=== PATIENT | female | born 1960 | race Caucasian/White ===

== ENCOUNTER 2019-04-09 12:22 | Day surgery (SDC) | payer BC, SELFPAY ==
[2019-04-09] VITALS (8 sets, daily range): BP systolic 127–164; BP diastolic 52–82; PULSE 68–78; RESP 10–17; TEMP 36–36.4; O2SAT 95–100; BMI 32.9
[2019-04-09] MEDS: SODIUM CHLORIDE 0.9% 1,000 ML 200 ML IV (13:44)
--- NOTE | 2019-04-09 14:12 | PM.HP.1 ---
History of Present Illness Chief complaint: [id number] COLONOSCOPY W/POSS BX; DX K21.50 Patient History Medical History Arthritis (Acute) Ulcerative colitis (Acute) Social History household members: spouse Family & Social History Social History: household members spouse Meds Home Medications Medication Instructions Recorded Confirmed Type Sheila Allergy 60 mg PO QAM PRN 03/27/18 04/09/19 History Ativan 0.5 - 1 mg PO DAILY PRN 03/27/18 04/09/19 History Basaglar KwikPen U-100 Insulin 30 - 40 units SUB-Q DAILY 03/27/18 04/09/19 History [place] 5 - 325 mg PO Q4H PRN 03/27/18 04/09/19 History duloxetine [Cymbalta] 30 mg PO DAILY 03/27/18 04/09/19 History liraglutide 1.8 mg SUB-Q QAM 03/27/18 04/09/19 History losartan 25 mg PO DAILY 03/27/18 04/09/19 History nebivolol [Bystolic] 20 mg PO DAILY 03/27/18 04/09/19 History budesonide 9 mg PO DAILY 04/09/19 04/09/19 History mesalamine 800 mg PO TID 04/09/19 04/09/19 History Allergies Allergy/AdvReac Type Severity Reaction Status Date / Time No Known Drug Allergies Allergy Verified 04/09/19 14:00 Review of Systems Review of Systems All systems reviewed & are unremarkable except as noted in HPI and below Exam Vital Signs (past 8 hours): - 04/09/19 13:46 Temperature 96.8 F L Pulse Rate 68 Respiratory Rate 14 Blood Pressure 164/81 H Pulse Oximetry 97 Oxygen Delivery Method Room Air Narrative Exam Narrative: Awake alert oriented x3, pupils reactive, lungs clear, heart regular rate rhythm, abdomen nondistended, no lower extremity edema Assessment & Plan Assessment & Plan narrative: Ulcerative colitis, colonoscopy
[2019-04-09] MEDS: MIDAZOLAM 5 MG/5 ML VIAL IV (15:02)
[2019-04-09] MEDS: fentaNYL 250 MCG/5 ML INJ IV (15:03)
--- NOTE | 2019-04-09 15:08 | PM.OP.ENDO ---
Operative Date/Time/Diagnoses Date of procedure: 04/09/19 Procedure & Clinicians Study performed: Colonoscopy Moderate conscious sedation was administered by the endoscopy nurse and supervised by the endoscopist. The following parameters were monitored: Oxygen saturation, heart rate, blood pressure, and response to care. Sedation: 5 mg midazolam, 200 micro g fentanyl Indications: Diarrhea, history of ulcerative proctosigmoiditis Procedure Notes Procedure in detail: Prior to the procedure, history and physical was performed, and patient medications and allergies were reviewed. Preprocedure nursing history and assessment was reviewed. Patient identification and proposed procedure were verified by the physician and nurse in the procedure room. The physical status of the patient was reassessed after the procedure. After informed consent was obtained including risks, benefits, and alternatives, the scope was passed under direct vision. Throughout the procedure, the patient's blood pressure, pulse, and oxygen saturations were monitored continuously. The colonoscope was introduced through the anus and advanced to the TI and cecum as identified by the appendiceal orifice and ileocecal valve. The patient tolerated the procedure fairly: Patient complained of pain throughout the procedure and we were unable to escalate doses of sedatives due to her respiratory status. Bowel prep was deemed inadequate to detect polyps greater than 5 mm. Digital rectal examination and perianal examination are unremarkable. Retroflexion in the rectum revealed grade 1 internal hemorrhoids. There was a large amount of liquid stool throughout the entire colon. This was lavaged with incomplete clearance. There is no evidence of severe inflammation throughout the entire colon. Biopsies were not taken due to the presence of stool throughout the colon. The terminal ileum was normal appearing. Impression: Normal appearing terminal ileum Stool throughout the entire colon Inadequate sedation No evidence of severe colitis. Very mild colitis or microscopic colitis cannot be ruled out without histologic testing. Sedation minutes: 15 Complications: none Plan for aftercare: Consider repeating colonoscopy with monitored anesthesia care and extended bowel prep if lower GI symptoms continue Follow-up in GI clinic at next available appointment Resume home medications Resume previous diet Discharge home with escort
== END 2019-04-09 16:20 | disposition home or self-care (01) ==
PROVIDERS: PCP Family Medicine; Visit Provider Internal Medicine
PROC: 0DJD8ZZ Inspection of Lower Intestinal Tract, Via Natural or Artificial Opening Endoscopic (ICD-10-PCS; CPT 45378; principal; 2019-04-09 14:30)
DX: R19.7 Diarrhea, unspecified (principal); Z87.19 Personal history of other diseases of the digestive system; K64.0 First degree hemorrhoids
CPT/HCPCS: 45378; J2250; J3010

== ENCOUNTER → 2020-07-11 10:09 | Outpatient (CLI) | payer BC, SELFPAY ==
[2020-07-13 01:41] LABS: COVID19 Sendout Not Detected (Not Detected)
== END ==
PROVIDERS: PCP Family Medicine; Visit Provider Physician Assistant
DX: Z11.59 Encounter for screening for other viral diseases (principal)
CPT/HCPCS: 87635

== ENCOUNTER 2020-07-14 14:21 | Day surgery (SDC) | payer BC, SELFPAY ==
--- NOTE | 2020-07-14 | PATH_ITS ---
[facility] Accession Number: [id number] . 01 Material submitted: . PART A: colon - RANDOM COLON BIOPSIES PART B: rectum - RECTAL BIOPSY PROCTITIS . 01 Clinical history: . COLONOSCOPY . 02 Diagnosis: A. Random Colon, Biopsies: Colonic mucosa with no significant diagnostic abnormality. Negative for active inflammation, granulomas, dysplasia, and malignancy. . B. Rectum, Biopsy: Colonic mucosa with no significant diagnostic abnormality. Negative for active inflammation, granulomas, dysplasia, and malignancy. MRV 07/16/2020 1214 Local . 02 Electronically signed: . Santo Johnson MD, PhD, Pathologist NPI- [id number] . 01 Gross description: . A. Received in formalin, labeled random colon biopsies, and consists of multiple hernandez-pink fragments of soft tissue measuring 1.2 x 1.0 x 0.2 cm in aggregate. The specimen is entirely submitted in cassette A1. B. Received in formalin, labeled rectal biopsy proctitis, and consists of six hernandez-pink fragments of soft tissue measuring 1.0 x 0.6 x 0.2 cm in aggregate. The specimen is entirely submitted in cassette B1. ([id number]) /MRV 07/15/2020 1042 Local . 02 Pathologist provided ICD-10: R19.7 . 02 CPT . 760165, 077844 Performed at: 01 [facility] [address] [place] [address], [place], [place] [id number] MD Ryland Chung MD Phone: [phone] Performed at: 02 [facility] [address] [place], [place] [id number] MD Temi Be MD Phone: [phone]
[2020-07-14 14:53] VITALS: BP 153/85; PULSE 86; RESP 16; TEMP 37.2; O2SAT 97; BMI 32.5
[2020-07-14] MEDS: SODIUM CHLORIDE 0.9% 1,000 ML 70 ML IV (15:03)
--- NOTE | 2020-07-14 15:53 | P.HP_ITS ---
History of Present Illness History of Present Illness Date Patient Seen: 07/14/20 Time Patient Seen: 15:53 Chief complaint: COLONOSCOPY Narrative: Patient shakeel 59 year old female who presented for colonosocpy. History of proctitis. Recent C diff treated with vancomycin. History of difficulty with concious sedation. Patient History Medical History Arthritis (Acute) Ulcerative colitis (Acute) Family & Social History Social History: household members spouse Tobacco & Substance use: Smoking Status Former smoker alcohol intake frequency holiday/special occasion Substance Use Type does not use Meds Home Medications and Allergies Home Medications Medication Instructions Recorded Confirmed Type Ativan 0.5 - 1 mg PO DAILY PRN 03/27/18 07/14/20 History Basaglar KwikPen U-100 Insulin 30 - 40 units SUB-Q DAILY 03/27/18 07/14/20 History Bystolic 10 mg PO DAILY 03/27/18 07/14/20 History [place] 5 - 325 mg PO Q4H PRN 03/27/18 07/14/20 History duloxetine [Cymbalta] 30 mg PO DAILY 03/27/18 07/14/20 History losartan 25 mg PO DAILY 03/27/18 07/14/20 History atorvastatin 20 mg PO DAILY 07/14/20 07/14/20 History cetirizine 10 mg PO DAILY 07/14/20 07/14/20 History liraglutide [Victoza 3-Felipe] 1.8 mg SUBCUT 07/14/20 History Allergies Allergy/AdvReac Type Severity Reaction Status Date / Time No Known Drug Allergies Allergy Verified 07/11/20 10:50 Review of Systems Review of Systems ROS: Yes All systems reviewed with the patient and are negative except as otherwise documented Exam Vital Signs (past 8 hours): - 07/14/20 14:53 Temperature 98.9 F Pulse Rate 86 Respiratory Rate 16 Blood Pressure 153/85 H Pulse Oximetry 97 Oxygen Delivery Method Room Air Const General: cooperative, healthy appearing, comfortable, well developed and well groomed Nutritional Appearance: average body habitus HENMT Head: normocephalic and atraumatic Resp Effort & Inspection: normal respiratory effort, able to speak in complete sentences and abnormal respiratory pattern Auscultation: clear to auscultation bilaterally Cardio Rate: regular rate Rhythm: regular rhythm Heart Sounds: S1 normal and S2 normal Extrem Right lower extremity: no edema Left lower extremity: no edema Assessment & Plan Assessment & Plan narrative: 1. Diarrhea Colonoscopy today, further recommendations to follow
--- NOTE | 2020-07-14 16:02 | PM.OP.ENDO ---
Operative Date/Time/Diagnoses Date of procedure: 07/14/20 Time of procedure: 16:03 Procedure Notes Procedure in detail: Surgeon: Lay Schreiber DO Procedure: Colonoscopy with biopsy Preoperative diagnosis: 1. Diarrhea 2. Hematochezia 3. Right lower quadrant abdominal pain 4. History of C diff colitis Postoperative diagnosis: 1. Mild proctitis -biopsied 2. Normal-appearing colon mucosa in the sigmoid, descending, transverse, and ascending colon biopsied 3. Normal appearing terminal ileum 4. Sigmoid diverticulosis 5. Mild grade 1 internal hemorrhoids Medications: Monitored anesthesia care Preanesthesia Assessment An H and P was performed/updated and the Px?s ASA class is 3. The procedure was discussed in detail with the patient. The potential risks and complications including infection, bleeding, missed lesions, perforation, need for surgery in case of perforation, prolonged hospital stay, and were explained. A brief question and answer period was allotted and once all questions were answered, informed consent was obtained. The patient was brought back to the procedure room and placed on standard monitoring. The patient?s vital signs were monitored continuously throughout the entire procedure. Prior to starting, a timeout was performed to confirm the patient?s identity, allergies, medications, and procedure. Procedure in detail The patient was placed in left lateral decubitus position and once adequate sedation was obtained a ANDRE was performed. The digital rectal examination did not reveal any palpable lesions. The tip of the colonoscope was placed in the anal canal and advanced without difficulty all the way to the cecum which was identified by the appendiceal orifice and the ileocecal valve. Careful examination of all larry of the colon was performed with irrigation of any residual stool. Colonoscopy findings: - Mild proctitis, biopsied - Normal-appearing colon mucosa in the sigmoid, descending, transverse and ascending colon -biopsied - Normal-appearing terminal ileum - Sigmoid diverticulosis - Mild grade 1 internal hemorrhoids noted on retroflexion - Otherwise unremarkable colonoscopy The patient tolerated the procedure well and will be brought back to the recovery area to be discharged once criteria are met. The prep was judged to be good/excellent and adequate to identify polyps less than 5 mm. The withdrawal time was 10min. The total physician intraservice time was 20min. Complications There were no complications and estimated blood loss was minimal. Recommendations: Resume previous diet Continue outPx medications Follow up pathology results Repeat colonoscopy will be determined after pathology results are reviewed Office follow up to be scheduled An emergency contact number was given to the patient for any complications related to the procedure
[2020-07-14 16:27] VITALS: BP 127/72; PULSE 83; RESP 17; TEMP 35.9; O2SAT 100
[2020-07-14 16:31] VITALS: BP 134/76; PULSE 83; RESP 16; O2SAT 100
[2020-07-14 16:37] VITALS: BP 146/73; PULSE 82; RESP 20; O2SAT 100
[2020-07-14 16:45] VITALS: BP 133/80; PULSE 81; RESP 16; TEMP 36.7; O2SAT 96
== END 2020-07-14 16:57 | disposition home or self-care (01) ==
PROVIDERS: PCP Family Medicine; Referring Provider Family Medicine; Visit Provider Student in an Organized Health Care Education/Training Program
PROC: 0DJD8ZZ Inspection of Lower Intestinal Tract, Via Natural or Artificial Opening Endoscopic (ICD-10-PCS; CPT 45378; principal; 2020-07-14 16:00)
DX: K57.30 Diverticulosis of large intestine without perforation or abscess without bleeding (principal); K64.0 First degree hemorrhoids; K62.89 Other specified diseases of anus and rectum
CPT/HCPCS: 45380; J2704

== ENCOUNTER → 2020-11-15 14:57 | Outpatient (CLI) | payer BC, SELFPAY ==
[2020-11-15 15:49] LABS: COVID19 -Nasal RAPID Negative (Negative)
== END ==
PROVIDERS: PCP Family Medicine; Visit Provider Physician Assistant
DX: Z20.822 Contact with and (suspected) exposure to COVID-19 (principal)
CPT/HCPCS: 87635

== ENCOUNTER → 2022-03-31 14:24 | Outpatient (CLI) | payer BC, SELFPAY ==
[2022-03-31 16:26] LABS: COVID19 -Nasal RAPID Negative (Negative)
== END ==
PROVIDERS: PCP Family Medicine; Visit Provider Surgery
DX: Z20.822 Contact with and (suspected) exposure to COVID-19 (principal); Z01.812 Encounter for preprocedural laboratory examination
CPT/HCPCS: 87635; C9803

== ENCOUNTER 2022-04-03 11:53 | Day surgery (SDC) | payer BC, SELFPAY ==
--- NOTE | 2022-04-03 | PATH_ITS ---
[facility] Accession Number: [id number] . 01 Material submitted: . PART A: colon - RIGHT COLON PART B: colon - LEFT COLON PART C: rectum - RECTAL . 01 Diagnosis: A-B. Right, Left Colon, Biopsies: Focal active colitis. Negative for granulomas, dysplasia, or malignancy. . C. Rectum, Biopsy: Mild active colitis with focal crypt architectural distortion; please see comment. Negative for granulomas, dysplasia, or malignancy. MRV 04/06/2022 1350 Local . 01 Comment: The overall histologic findings raise a differential diagnosis, including infection, drug/toxin-induced injury, and, in the appropriate clinical setting, idiopathic inflammatory bowel disease. . 01 Electronically signed: . Santo Johnson MD, PhD, Pathologist NPI- [id number] . 01 Gross description: . Part A: RIGHT COLON: Received in formalin is 1 fragment(s) of hernandez, soft tissue measuring 0.1 x 0.1 x 0.1 cm submitted entirely in 1 cassette(s) Part B: LEFT COLON: Received in formalin are 2 fragment(s) of hernandez, soft tissue measuring 0.1 x 0.1 x 0.1 cm to 0.3 x 0.3 x 0.2 cm submitted entirely in 1 cassette(s) Part C: RECTAL: Received in formalin are 3 fragment(s) of hernandez, soft tissue measuring 0.1 x 0.1 x 0.1 cm to 0.3 x 0.3 x 0.2 cm submitted entirely in 1 cassette(s) /MARIN 04/04/2022 1933 Local . 01 Pathologist provided ICD-10: K92.1, R19.7, K52.9 . 01 CPT . 166208, 356311, 422849 Specimen Comment: A courtesy copy of this report has been sent to [phone] Performed at: 01 [facility] [address] [place] [address], [place], [place] [id number] MD Ryland Chung MD Phone: [phone]
[2022-04-03 12:50] VITALS: BP 127/75; PULSE 63; RESP 16; TEMP 36.7; O2SAT 97
[2022-04-03 12:51] VITALS: BMI 33.0
--- NOTE | 2022-04-03 14:16 | P.HP_ITS ---
History of Present Illness History of Present Illness Date Patient Seen: 04/03/22 Time Patient Seen: 14:16 Chief complaint: DX COLONOSCOPY Narrative: I reviewed the recent office note by . No significant changes. Patient has persistent intermittent loose stool bleeding. Repeat colonoscopy is requested. Patient History Medical History Arthritis Diabetes Diverticulosis Endometriosis History of COVID-19 (~02/2022) HTN (hypertension) PTSD (post-traumatic stress disorder) Recurrent colitis due to Clostridioides difficile Ulcerative colitis Surgical History History of colonoscopy History of hysterectomy Family & Social History Social History: household members spouse Tobacco & Substance use: Smoking Status Former smoker alcohol intake current alcohol intake frequency holiday/special occasion Substance Use Type does not use Meds Home Medications and Allergies Home Medications Medication Instructions Recorded Confirmed Type Ativan 0.5 - 1 mg PO DAILY PRN 03/27/18 04/03/22 History Basaglkimmie [place] U-100 Insulin 30 - 40 units SUB-Q DAILY 03/27/18 04/03/22 History [place] 5 - 325 mg PO Q4H PRN 03/27/18 04/03/22 History duloxetine 30 mg capsule,delayed 30 mg PO DAILY 03/27/18 04/03/22 History release (Cymbalta) losartan 25 mg tablet 25 mg PO DAILY 03/27/18 04/03/22 History atorvastatin 20 mg tablet 20 mg PO DAILY 07/14/20 04/03/22 History cetirizine 10 mg tablet 10 mg PO DAILY 07/14/20 04/03/22 History liraglutide 0.6 mg/0.1 mL (18 mg/3 1.8 mg SUBCUT DAILY 07/14/20 04/03/22 History mL) subcutaneous pen injector (Victoza 3-Felipe) amlodipine 10 mg tablet 10 mg PO DAILY 04/03/22 04/03/22 History empagliflozin 25 mg tablet 25 mg PO DAILY 04/03/22 04/03/22 History (Jardiance) mesalamine 1,000 mg rectal 1 g SC BEDTIME 04/03/22 04/03/22 History suppository (Canasa) nebivolol 20 mg tablet 20 mg PO DAILY 04/03/22 04/03/22 History Allergies Allergy/AdvReac Type Severity Reaction Status Date / Time latex Allergy Mild Burning Verified 04/03/22 12:42 (from a catheter) codeine AdvReac Mild Nausea Verified 04/03/22 12:42 felodipine [From Plendil] AdvReac Mild Migraine Verified 04/03/22 12:42 Review of Systems Review of Systems ROS: Yes All systems reviewed with the patient and are negative except as otherwise documented Exam Vital Signs (past 8 hours): - 04/03/22 12:50 Temperature 98.1 F Pulse Rate 63 Respiratory Rate 16 Blood Pressure 127/75 Pulse Oximetry 97 Oxygen Delivery Method Room Air Const General: cooperative and comfortable Orientation: alert HENMT Head: normocephalic Ears: external ears normal Nose: external nose normal Face and sinus: normal facial exam Mouth: oral mucosae normal Eyes General: appearance normal, both eyes and all related structures Neck Neck: normal visual inspection Chest Chest: normal inspection of the chest Resp Effort & Inspection: normal respiratory effort Cardio Rate: regular rate GI Inspection: normal to inspection Skin General: no rashes or lesions noted and No jaundice Neuro General: patient alert and moves all extremities Cognition: normal cognition Speech: speech normal Extrem General: no pedal edema Psych Appearance: grossly normal Assessment & Plan Assessment & Plan narrative: 61-year-old female with a history of C diff colitis and indeterminate colitis experiencing ongoing symptoms despite mesalamine suppositories. Colonoscopy is pursued today. Time Spent With Patient Critical Care time: I spent a total of [] minutes of critical care time on this patient's care today; this time is exclusive of procedural time.
--- NOTE | 2022-04-03 14:19 | PM.PREOP ---
Pre-operative Note COVID-19 COVID-19 status: Negative Result date/Date tested (Pos, Neg/Pending): 03/31/22 Criteria for continued procedure: Possibility delay results in more complex future surgery or treatment Interval Note History & Physical reviewed/Exam performed by Physician: Yes Changes to H&P: No ASA Class (for procedural sedation): II
--- NOTE | 2022-04-03 14:45 | PM.OP.COLON ---
Operative Date/Time/Diagnoses Date of procedure: 04/03/22 Time of procedure: 14:45 Pre-op diagnosis: History of colitis. Ongoing bleeding. Post-op diagnosis: same Procedure & Clinicians Study performed: Colonoscopy with biopsies Same procedure as scheduled: Yes Indications: History of colitis ongoing bleeding symptoms Surgeon: Giancarlo Tolbert Procedure Notes SCOAP/Timeout: Done Procedure in detail: After the risks and benefits were explained, written and verbal informed consent was obtained. The patient was brought into the procedure room and placed into the left lateral decubitus position. Please see nurse manager user interface notes for sedation details. Digital rectal examination was accomplished. The scope was introduced into the patient and advanced under direct visualization to the cecum as identified by the appendiceal orifice and ileocecal valve. The scope was slowly withdrawn to carefully examine the mucosa for any defects or lesions. Comprehensive imaging was accomplished throughout the rectum including the dentate line. The colon was decompressed, the scope was then removed from the patient who tolerated the procedure well. Pediatric colonoscope Bowel prep adequate Scope withdrawal time: 12 minutes Sedation minutes: 19 Complications: none Impression: There was obvious mild proctitis characterized by loss of vascularity, increased friability, a granular appearance to the mucosa from the dentate line to roughly the rectosigmoid junction. Proximal to the rectosigmoid junction the mucosa appeared normal. There were a few scattered very subtle old erosive features in the cecum but otherwise no evidence of colitis throughout. The terminal ileum was interrogated and appeared visually normal. I took random right colon biopsies, random left colon biopsies, and rectal biopsies. These were submitted separately for histopathologic analysis. In the sigmoid, there was evidence of some diverticulosis. Endoscopic diagnosis 1. Proctitis 2. Diverticulosis Post-procedure Plan for aftercare: 1. Await histopathology 2. Continue Canasa suppositories 1 g each evening. 3. Follow up with Dr. Stern Disposition: PACU
[2022-04-03 14:47] VITALS: BP 129/64; PULSE 76; RESP 16; TEMP 36.4; O2SAT 98
[2022-04-03 14:52] VITALS: BP 130/58; PULSE 87; RESP 16; O2SAT 99
[2022-04-03 14:57] VITALS: BP 129/64; PULSE 72; RESP 16; O2SAT 98
[2022-04-03 15:23] VITALS: BP 134/75; PULSE 70; RESP 16; TEMP 36.3; O2SAT 98
== END 2022-04-03 15:45 | disposition home or self-care (01) ==
PROVIDERS: PCP Nurse Practitioner; Referring Provider Internal Medicine Gastroenterology; Visit Provider Internal Medicine Gastroenterology
PROC: 0DJD8ZZ Inspection of Lower Intestinal Tract, Via Natural or Artificial Opening Endoscopic (ICD-10-PCS; CPT 45378; principal; 2022-04-03 13:30)
DX: K62.5 Hemorrhage of anus and rectum (principal); K57.30 Diverticulosis of large intestine without perforation or abscess without bleeding; K52.9 Noninfective gastroenteritis and colitis, unspecified
CPT/HCPCS: 45380; J2704

== ENCOUNTER 2024-06-16 08:39 | Day surgery (SDC) | payer BC, SELFPAY ==
--- NOTE | 2024-06-16 | PATH_ITS ---
[facility] Accession Number: [id number] No. of containers..08 Tissue . 01 Material submitted: . PART A: duodenum - DUODENUM PART B: gastrointestinal site - ANTRUM PART C: esophagus, E-G Junction - GE JUNCTION PART D: colon - ASCENDING COLON PART E: colon - TRANSVERSE COLON PART F: colon - DESCENDING COLON PART G: colon - SIGMOID COLON PART H: rectum - RECTAL . 01 Diagnosis: A. Duodenum, biopsy: Small bowel mucosa with preserved villous architecture, negative for histologic evidence of celiac disease. Negative for dysplasia or malignancy. -- B. Stomach, antrum, biopsy: Oxyntic gastric mucosa with unremarkable histology. No H. Pylori like organisms identified (on the H/E- stained sections). Negative for gastritis, intestinal metaplasia, dysplasia, or malignancy. -- C. Gastro-esophageal junction, biopsy: Columnar epithelium, negative for intestinal metaplasia. Squamous epithelium with no increased intraepithelial eosinophils. Negative for dysplasia and negative for malignancy. -- D. Colon, ascending, biopsy: Benign colonic mucosa, negative for active or chronic inflammation. Negative for dysplasia or malignancy. -- E. Colon, transverse, biopsy: Benign colonic mucosa, negative for active or chronic inflammation. Negative for dysplasia or malignancy. -- F. Colon, descending, biopsy: Benign colonic mucosa, negative for active or chronic inflammation. Negative for dysplasia or malignancy. -- G. Colon, sigmoid, biopsy: Benign colonic mucosa, with focal erosion, negative for active or chronic inflammation. Negative for dysplasia or malignancy. -- H. Colon, rectal, biopsy: Benign colonic mucosa, with focal erosion, negative for active or chronic inflammation. Negative for dysplasia or malignancy. TXN 06/18/2024 1155 Local . 01 Electronically signed: . Mihaela To MD, Pathologist NPI- [id number] . 01 Gross description: . Part A: DUODENUM: Received in formalin is 1 fragment(s) of hernandez, soft tissue measuring 0.4 x 0.3 x 0.2 cm submitted entirely in 1 cassette(s) Part B: ANTRUM: Received in formalin are 2 fragment(s) of hernandez, soft tissue measuring 0.2 x 0.2 x 0.2 cm to 0.3 x 0.3 x 0.2 cm submitted entirely in 1 cassette(s) Part C: GE JUNCTION: Received in formalin is 1 fragment(s) of hernandez, soft tissue measuring 0.3 x 0.3 x 0.2 cm submitted entirely in 1 cassette(s) Part D: ASCENDING COLON: Received in formalin are 4 fragment(s) of hernandez, soft tissue measuring 0.1 x 0.1 x 0.1 cm to 0.3 x 0.3 x 0.2 cm submitted entirely in 1 cassette(s) Part E: TRANSVERSE COLON: Received in formalin are 4 fragment(s) of hernandez, soft tissue measuring 0.1 x 0.1 x 0.1 cm to 0.3 x 0.2 x 0.2 cm submitted entirely in 1 cassette(s) Part F: DESCENDING COLON: Received in formalin are 4 fragment(s) of hernandez, soft tissue measuring 0.1 x 0.1 x 0.1 cm to 0.3 x 0.1 x 0.1 cm submitted entirely in 1 cassette(s) Part G: SIGMOID COLON: Received in formalin are 4 fragment(s) of hernandez, soft tissue measuring 0.1 x 0.1 x 0.1 cm to 0.3 x 0.3 x 0.2 cm submitted entirely in 1 cassette(s) Part H: RECTAL: Received in formalin are 3 fragment(s) of hernandez, soft tissue measuring 0.1 x 0.1 x 0.1 cm to 0.2 x 0.2 x 0.1 cm submitted entirely in 1 cassette(s) /MARIN 06/17/2024 0200 Local . 01 Pathologist provided ICD-10: K51.00 . 01 CPT . 169071, 240595, 034427, 937516, 240122, 891371, 993835, 129021 Specimen Comment: A courtesy copy of this report has been sent to [phone] Performed at: 01 [facility] [address], [place], [place] [id number] MD Ryland Chung MD Phone: [phone]
[2024-06-16 09:02] VITALS: BP 139/80; PULSE 68; RESP 12; TEMP 36.2; O2SAT 97
[2024-06-16] MEDS: LACTATED RINGERS 1,000 ML 42 ML IV (09:20)
--- NOTE | 2024-06-16 09:30 | PM.HP.1 ---
History of Present Illness History of Present Illness Date Patient Seen: 06/16/24 Time Patient Seen: 09:31 Chief complaint: EGD & Colonoscopy Narrative: 63-year-old female here for EGD and colonoscopy. I reviewed the note from clinic by Dr. Stern. The patient indicates that diarrhea has resolved since getting her most recent dose of Entyvio. This is why she did not complete the stool studies that were requested. PENDING SALE TO [facility] Medical History Arthritis Diabetes Diverticulosis Endometriosis History of COVID-19 (~02/2022) HTN (hypertension) PTSD (post-traumatic stress disorder) Recurrent colitis due to Clostridioides difficile Ulcerative colitis Surgical History History of hysterectomy History of colonoscopy Social History household members: spouse Smoking Status: Former smoker alcohol intake: current Meds Home Medications and Allergies Home Medications Medication Instructions Recorded Confirmed Type Ativan 0.5 - 1 mg PO DAILY PRN Anxiety 03/27/18 06/16/24 History Basaglar KwikPen U-100 Insulin 30 - 40 units SUBCUT DAILY 03/27/18 04/03/22 History Advance 5 - 325 mg PO Q4H PRN PAIN 03/27/18 04/03/22 History duloxetine 30 mg capsule,delayed 30 mg PO DAILY 03/27/18 06/16/24 History release (Cymbalta) losartan 25 mg tablet 25 mg PO DAILY 03/27/18 06/16/24 History cetirizine 10 mg tablet 10 mg PO DAILY 07/14/20 06/16/24 History amlodipine 10 mg tablet 10 mg PO DAILY 04/03/22 06/16/24 History empagliflozin 25 mg tablet 25 mg PO DAILY 04/03/22 06/16/24 History (Jardiance) nebivolol 20 mg tablet 20 mg PO DAILY 04/03/22 06/16/24 History ezetimibe 10 mg tablet 10 mg PO DAILY 06/16/24 06/16/24 History furosemide 20 mg tablet mg PO 06/16/24 History tirzepatide 2.5 mg/0.5 mL mg SUBCUT 06/16/24 History subcutaneous pen injector (Mounjaro) Allergies Allergy/AdvReac Type Severity Reaction Status Date / Time latex Allergy Mild Burning Verified 06/16/24 09:05 (from a catheter) codeine AdvReac Mild Nausea Verified 06/16/24 09:05 felodipine [From Plendil] AdvReac Mild Migraine Verified 06/16/24 09:05 Review of Systems Review of Systems ROS: Yes All systems reviewed with the patient and are negative except as otherwise documented Exam Vital Signs (past 8 hours): - 06/16/24 09:02 Temperature 97.2 F L Pulse Rate 68 Respiratory Rate 12 Blood Pressure 139/80 Pulse Oximetry 97 Oxygen Delivery Method Room Air Oxygen Delivery Method Room Air Const General: cooperative HENMT Head: normal to inspection Eyes General: appearance normal, both eyes and all related structures Neck Neck: normal visual inspection Chest Chest: normal inspection of the chest Resp Effort & Inspection: normal respiratory effort Cardio Rate: regular rate GI Inspection: normal to inspection Skin General: no rashes or lesions noted Neuro General: patient alert and patient awake Extrem General: normal to inspection and no pedal edema Psych Appearance: grossly normal Assessment & Plan Assessment & Plan narrative: 63-year-old female with symptoms of GERD, diarrhea, ulcerative colitis. EGD for small-bowel biopsies is requested plus colonoscopy for dysplasia surveillance. Time-Based Coding :: [TOTAL MINUTES] spent with patient and on the chart (including review of chart, obtaining history, exam, reviewing outside data, placing orders, documenting exam and treatment plan, and counseling patient) on [DATE].
--- NOTE | 2024-06-16 09:33 | PM.PREOP ---
Pre-operative Note Interval Note History & Physical reviewed/Exam performed by Physician: Yes Changes to H&P: Yes ASA Class (for procedural sedation): III
--- NOTE | 2024-06-16 10:36 | PM.OP.EC ---
Operative Date/Time/Diagnoses Date of procedure: 06/16/24 Time of procedure: 10:36 Pre-op diagnosis: GERD, diarrhea, history of ulcerative colitis Post-op diagnosis: same Procedure & Clinicians Study performed: EGD with biopsies and colonoscopy with biopsies Indications: GERD, diarrhea, history of ulcerative colitis Surgeon: Giancarlo Tolbert Procedure Notes SCOAP/Timeout: Done Procedure in detail: After the risks and benefits were explained, written and verbal informed consent was obtained. The patient was brought into the procedure room and placed into the left lateral decubitus position. Please see anesthesia notes for sedation details. The scope was introduced into the mouth through the bite block and advanced under direct visualization to the 2nd portion of the duodenum. The scope was slowly withdrawn carefully examining the mucosa for any defects or lesions. Retroflexed views were accomplished in the stomach. The stomach was decompressed, the scope was then removed from the patient who tolerated the procedure well. The patient was then turned around. A digital rectal examination was accomplished. The scope was introduced into the rectum and advanced to the cecum as identified by the appendiceal orifice and ileocecal valve. The terminal ileum was interrogated. The scope was then slowly withdrawn to carefully examine the mucosa for any defects or lesions. Multiple direct views were made through the dentate line for exclusion of pathology. The colon was decompressed. The scope was removed from the patient who tolerated the procedure well. Pediatric colonoscope Bowel prep adequate Scope withdrawal time: 13 minutes Sedation minutes: 33 Complications: none Impression: 1. Duodenal: This was visually normal. Biopsies were taken from D2 for exclusion of sprue. 2. Stomach: Minimal gastropathy was appreciated. Biopsies were therefore taken from the antrum for exclusion of H pylori. No ulcers no mass lesions no outlet obstruction. Retroflexed views of the LES disclosed a Hill valve grade 3 hiatal hernia. 3. Esophagus: The squamocolumnar junction generally correlated with the top of the gastric folds. The GE junction was at approximately 33 cm from the incisors and the diaphragmatic pinchcock was at approximately 35 cm from the incisors. The GE junction was slightly irregular in the 9:00 a.m. location on the cardia side. A targeted biopsy was acquired from this location. Otherwise the patient had evidence of linear erosive esophagitis graded at LA grade C extending up to about 30 cm from the incisors. The remainder of the esophagus was unremarkable. 4. Terminal ileum: This was visually normal. 5. Colon: No evidence of proctitis. No evidence of macroscopic colitis throughout. Segmental biopsies were acquired from the ascending, transverse, descending, sigmoid, and finally rectum x4 at each location for dysplasia surveillance. Endoscopic diagnosis 1. Small hiatal hernia 2. LA grade C erosive esophagitis 3. Mild gastropathy 4. Irregular gastric cardia 5. Visually normal colonoscopy and terminal ileoscopy Post-procedure Plan for aftercare: 1. Await histology 2. Anti-reflux therapy with [id number] omeprazole is recommended. 3. Surveillance EGD will be considered contingent on pathology results. 4. Consider surveillance colonoscopy 2 years. 5. Otherwise continue current IBD therapy and follow up in GI clinic as before. Disposition: PACU
[2024-06-16 10:38] VITALS: BP 94/55; PULSE 67; RESP 12; TEMP 36.4; O2SAT 99
[2024-06-16 10:43] VITALS: BP 96/67; PULSE 72; RESP 14; O2SAT 97
[2024-06-16 10:48] VITALS: BP 109/78; PULSE 62; RESP 15; O2SAT 97
[2024-06-16 10:53] VITALS: BP 116/68; PULSE 60; RESP 12; TEMP 36.4; O2SAT 99
[2024-06-16 11:02] VITALS: BP 116/68; PULSE 62; RESP 22; O2SAT 99
== END 2024-06-16 11:16 | disposition home or self-care (01) ==
PROVIDERS: PCP Nurse Practitioner; Referring Provider Internal Medicine Gastroenterology; Visit Provider Internal Medicine Gastroenterology
PROC: 0DJ08ZZ Inspection of Upper Intestinal Tract, Via Natural or Artificial Opening Endoscopic (ICD-10-PCS; CPT 43235; principal; 2024-06-16 09:30)
PROC: 0DJD8ZZ Inspection of Lower Intestinal Tract, Via Natural or Artificial Opening Endoscopic (ICD-10-PCS; CPT 45378; 2024-06-16 09:30)
DX: R19.7 Diarrhea, unspecified (principal); Z87.19 Personal history of other diseases of the digestive system; K44.9 Diaphragmatic hernia without obstruction or gangrene; K31.9 Disease of stomach and duodenum, unspecified; K21.00 Gastro-esophageal reflux disease with esophagitis, without bleeding
CPT/HCPCS: 45380; 43239; J2704

== ENCOUNTER 2024-10-06 11:14 | Day surgery (SDC) | payer MEDICARE, BC, SELFPAY ==
[2024-10-06 12:56] VITALS: BP 118/68; PULSE 76; RESP 16; TEMP 36.5; O2SAT 99
--- NOTE | 2024-10-06 14:05 | PM.HP.1 ---
History of Present Illness History of Present Illness Date Patient Seen: 10/06/24 Time Patient Seen: 14:05 Chief complaint: EGD w/poss bx Narrative: 64-year-old female with LA grade C erosive esophagitis at her most recent exam. She has been taking the omeprazole consistently but she has been taking it before bed. She reports an approximately 80-90% overall improvement in her reflux symptoms. She is here for repeat assessment to document mucosal healing. [facility] Medical History History of COVID-19 (~02/2022) Diabetes PTSD (post-traumatic stress disorder) Endometriosis HTN (hypertension) Diverticulosis Recurrent colitis due to Clostridioides difficile Ulcerative colitis Arthritis Surgical History History of hysterectomy History of colonoscopy Social History household members: spouse Smoking Status: Former smoker alcohol intake: current Meds Home Medications and Allergies Home Medications Medication Instructions Recorded Confirmed Type Ativan 0.5 - 1 mg PO DAILY PRN Anxiety 03/27/18 10/06/24 History [place] 5 - 325 mg PO Q4H PRN PAIN 03/27/18 10/06/24 History duloxetine 30 mg capsule,delayed 30 mg PO DAILY 03/27/18 10/06/24 History release (Cymbalta) losartan 25 mg tablet 25 mg PO DAILY 03/27/18 10/06/24 History cetirizine 10 mg tablet 10 mg PO DAILY 07/14/20 10/06/24 History amlodipine 10 mg tablet 10 mg PO DAILY 04/03/22 10/06/24 History empagliflozin 25 mg tablet 25 mg PO DAILY 04/03/22 10/06/24 History (Jardiance) nebivolol 20 mg tablet 20 mg PO DAILY 04/03/22 10/06/24 History ezetimibe 10 mg tablet (Zetia) 10 mg PO DAILY 06/16/24 10/06/24 History furosemide 20 mg tablet 20 mg PO 06/16/24 History tirzepatide 2.5 mg/0.5 mL 0.5 mg SUBCUT 06/16/24 History subcutaneous pen injector (Mounjaro) vedolizumab 300 mg intravenous 300 mg IV Q8W 10/06/24 10/06/24 History solution (Entyvio) Allergies Allergy/AdvReac Type Severity Reaction Status Date / Time latex Allergy Mild Burning Verified 06/16/24 09:05 (from a catheter) codeine AdvReac Mild Nausea Verified 06/16/24 09:05 felodipine [From Plendil] AdvReac Mild Migraine Verified 06/16/24 09:05 aspartame AdvReac Headache Verified 10/06/24 12:34 Review of Systems Review of Systems ROS: Yes All systems reviewed with the patient and are negative except as otherwise documented Exam Vital Signs (past 8 hours): - 10/06/24 12:56 Temperature 97.7 F Pulse Rate 76 Respiratory Rate 16 Blood Pressure 118/68 Pulse Oximetry 99 Oxygen Delivery Method Room Air Oxygen Delivery Method Room Air Const General: cooperative HENMT Head: normal to inspection Eyes General: appearance normal, both eyes and all related structures Neck Neck: normal visual inspection Chest Chest: normal inspection of the chest Resp Effort & Inspection: normal respiratory effort Cardio Rate: regular rate GI Inspection: normal to inspection Skin General: no rashes or lesions noted Neuro General: patient alert and patient awake Extrem General: normal to inspection and no pedal edema Psych Appearance: grossly normal Assessment & Plan Assessment & Plan narrative: 64-year-old female with erosive esophagitis. She is improved on consistent PPI. Surveillance EGD is pursued today. Time-Based Coding :: [TOTAL MINUTES] spent with patient and on the chart (including review of chart, obtaining history, exam, reviewing outside data, placing orders, documenting exam and treatment plan, and counseling patient) on [DATE].
--- NOTE | 2024-10-06 14:07 | PM.PREOP ---
Pre-operative Note Interval Note History & Physical reviewed/Exam performed by Physician: Yes Changes to H&P: No ASA Class (for procedural sedation): III
--- NOTE | 2024-10-06 14:19 | P.OP.EGD_ITS ---
Operative Date/Time/Diagnoses Date of procedure: 10/06/24 Time of procedure: 14:19 Pre-op diagnosis: LA grade C erosive esophagitis Post-op diagnosis: same Procedure & Clinicians Study performed: EGD Same procedure as scheduled: Yes Indications: LA grade C erosive esophagitis Surgeon: Giancarlo Tolbert Procedure Notes SCOAP/Timeout: Done Procedure in detail: After the risks and benefits were explained, written and verbal informed consent was obtained. The patient was brought into the procedure room and placed into the left lateral decubitus position. Please see anesthesia notes for sedation details. The scope was introduced into the mouth through the bite block and advanced under direct visualization to the 2nd portion of the duodenum. The scope was slowly withdrawn carefully examining the mucosa for any defects or lesions. Retroflexed views were accomplished in the stomach. The stomach was decompressed, the scope was then removed from the patient who tolerated the procedure well. Sedation minutes: 6 Specimen(s): none sent Complications: none Impression: 1. Duodenal: This was visually normal from the bulb through to the 2nd portion. 2. Stomach: Mild gastropathy was once again identified. No ulcers no mass lesions no outlet obstruction. I did not repeat biopsies. Retroflexed views of the LES were fairly unremarkable. 3. Esophagus: The squamocolumnar junction correlated with the top of the gastric folds. GEJ was at approximately 33 cm from the incisors the diaphragmat ic pinchcock was at about 35 cm from the incisors. There has been complete healing of the previously documented esophagitis. All the remains as a fairly sharp Jeffery variable Z-line which basically correlates with the level of GE junction. No stricturing. No mass lesions. No additional esophageal pathology. Endoscopic diagnosis 1. Small sliding hiatal hernia 2. Healed esophagitis 3. Gastropathy Post-procedure Plan for aftercare: 1. Continue omeprazole. I recommend this be taken about 30-60 minutes before the 1st or last meal of the day on a relatively empty stomach. 2. Follow up GI clinic as before. Disposition: PACU
[2024-10-06 14:22] VITALS: BP 100/64; PULSE 80; RESP 20; TEMP 36.4; O2SAT 92
[2024-10-06 14:27] VITALS: BP 105/69; PULSE 78; RESP 17; O2SAT 93
[2024-10-06 14:32] VITALS: BP 120/71; PULSE 77; RESP 15; TEMP 36.2; O2SAT 96
[2024-10-06 14:33] VITALS: BP 114/59; PULSE 76; RESP 16; O2SAT 98
== END 2024-10-06 14:48 | disposition home or self-care (01) ==
PROVIDERS: PCP Nurse Practitioner; Referring Provider Internal Medicine Gastroenterology; Visit Provider Internal Medicine Gastroenterology
PROC: 0DJ08ZZ Inspection of Upper Intestinal Tract, Via Natural or Artificial Opening Endoscopic (ICD-10-PCS; CPT 43235; principal; 2024-10-06 15:00)
DX: K31.9 Disease of stomach and duodenum, unspecified (principal); K44.9 Diaphragmatic hernia without obstruction or gangrene; Z87.19 Personal history of other diseases of the digestive system
CPT/HCPCS: 43235; J2704

== ENCOUNTER → 2025-03-11 07:55 | Outpatient (CLI) | payer MEDICARE, BC, SELFPAY ==
--- NOTE | 2025-03-11 07:56 | DI.ECHO.S_ITS ---
[facility] +---------+ [facility] : : [address] : : [place] : : [id number] : : Phone: [phone] Echocardiogram Report + + :Name: AMAURI BEENDICT Study Date: 03/11/2025 Height: 61 in : :Hospital ReadingLocation: Weight: 155 lb : : Gender: Female BSA: 1.7 m2 : :: 1960 Age: 64 yrs BP: 126/73 mmHg: :Reason For Study: LEFT BUNDLE BRANCH BLOCK : :Ordering Physician: LALITHA, : :SARIAH Performed By: Angel Parson : :Referring: SARIAH MCINTYRE : + + Interpretation Summary 1) Normal left ventricular thickness, size, and systolic function (EF 55-60%). 2) Normal right ventricular size and function. 3) No significant valvular abnormalities. 4) No prior Echo available for comparison. Procedure: A two-dimensional transthoracic echocardiogram with color flow and Doppler was performed. The study quality was technically adequate. There is no prior echocardiogram noted for this patient. The patient was in sinus rhythm with heart rates between 67-85 bpm during the exam. Left Ventricle: The left ventricle is normal in size. Left ventricular wall thickness is at the upper limits of normal. Left ventricular systolic function is normal. The ejection fraction is estimated to be 55-60%. Septal motion is consistent with conduction abnormality. Diastolic parameters suggest a relaxation abnormality of the left ventricle, consistent with probable normal filling pressures. Right Ventricle: The right ventricle is normal in size and function. Atria: Both atria are normal in size. There is no Doppler evidence for an atrial septal defect. Mitral Valve: The mitral valve leaflets appear to open well. There is mild mitral annular calcification. There is no mitral valve stenosis. There is trace mitral regurgitation. Aortic Valve: The aortic valve is trileaflet. The aortic valve opens well. There is no aortic valve stenosis. No aortic regurgitation is present. Tricuspid Valve: The tricuspid valve leaflets are thin and pliable. There is trace tricuspid regurgitation. Pulmonary artery pressures cannot be estimated because of the lack of a measurable TR jet velocity but the IVC suggests a CVP of around 3 mmHg. Pulmonic Valve: The pulmonic valve is not well seen, but is grossly normal. There is a trace or physiologic amount of pulmonic regurgitation. Great Vessels: The aortic root is normal size. The ascending aorta is normal in size. The aortic arch could not be visualized. The IVC is of normal diameter and collapses greater than 50% with a sniff. This suggests a low right atrial pressure of 3 mm Hg. Pericardium/ Pleura There is no pericardial effusion. MMode/2D Measurements & Calculations LVIDd: 3.9 cm LVOT diam: 2.0 cm LVIDs: 2.5 cm Ao root diam: 2.9 cm FS: 35.0 % EPSS: 0.37 cm IVSd: 1.0 cm LVPWd: 1.0 cm LV fletcher. diameter/BSA (cm/m^2): 2.3 LV sys. diameter/BSA (cm/m^2): 1.5 LA A2 area: 15.6 cm2 RA long axis: 4.4 cm LA A4 area: 20.2 cm2 RA area: 13.1 cm2 LA length (vol): 5.3 cm RA vol: 33.1 ml LA vol: 50.5 ml RA : 19.6 ml/m2 LA vol index: 29.8 ml/m2 IVC diam: 1.5 cm RVD1 (basal): 3.1 cm RVD2 (mid): 2.6 cm TAPSE: 1.8 cm Doppler Measurements & Calculations Ao V2 max: 134.1 cm/sec LVOT Max Chris: 91.8 cm/sec Ao V2 mean: 90.6 cm/sec LV V1 max P.4 mmHg Ao max P.2 mmHg LV V1 VTI: 19.8 cm Ao mean P.9 mmHg MAXX(I,D): 2.5 cm2 Ao V2 VTI: 24.1 cm MAXX(V,D): 2.1 cm2 sev ratio: 0.82 MAXX indexed to BSA (cm^2/m^2): 1.5 MV E max chris: 88.0 cm/sec PA V2 max: 76.9 cm/sec MV A max chris: 95.7 cm/sec PA V2 mean: 50.4 cm/sec MV E/A: 0.92 PA mean P.2 mmHg Med Peak E' Chris: 4.4 cm/sec PA pr(Accel): 41.3 mmHg E/E' med: 19.8 Lat Peak E' Chris: 5.6 cm/sec E/E' lat: 15.6 E/e' average: 17.7 MV dec time: 0.16 sec SV(LVOT): 61.2 ml Reading Physician:12:52 PM
--- NOTE | 2025-03-13 08:25 | DI.NM.S_ITS ---
DATE OF SERVICE: 03/11/2025 NUCLEAR CARDIOLOGY MYOCARDIAL PERFUSION STUDY PROCEDURE: Pharmacologic vasodilator stress and rest myocardial perfusion imaging with gating to assess ejection fraction and regional wall motion. ORDERING PROVIDER: Dr. Kyle Mcintyre. INDICATIONS: The patient is a 64-year-old female with exertional dyspnea and a newly discovered LBBB. CARDIAC STRESS: Per protocol, 0.4 mg of regadenoson was infused with a normal hemodynamic response without any chest discomfort or other anginal symptoms. Her resting ECG shows sinus rhythm with a LBBB with associated ST-segment abnormalities. There are no significant ST-segment shifts or arrhythmias with stress. Per protocol, 26.7 mCi of technetium-99m Myoview was injected and she was imaged 15 minutes later using a gated acquisition protocol. Earlier in the day while at rest, she had been injected with 12.7 mCi of technetium- 99m Myoview and was imaged 15 minutes later, again using a gated SPECT acquisition protocol. FINDINGS: 1. Raw data: There is fairly good myocardial tracer uptake but moderate breast shadows are noted. The lung/heart ratio is normal at 0.29 with a normal TID ratio of 0.98. 2. Quantitated gated SPECT: Post-stress ejection fraction is 80% without any focal wall motion abnormality, and specifically the distal anterior wall and apex have normal contractility. The resting ejection fraction is 74% with a normal resting end-diastolic volume of 84 mL. 3. Myocardial perfusion imaging: Post-stress supine images show a mild perfusion defect in the distal anterior septum and apex that nearly completely resolves on prone imaging, revealing a more homogeneous perfusion pattern. The resting images show a very similar perfusion pattern to that of the post-stress supine images without any clear areas of improvement. IMPRESSION: 1. Probable normal myocardial perfusion study for ischemia. 2. Subtle, fixed distal anteroseptal and apical defect that nearly resolves on prone imaging, most consistent with attenuation artifact and/or LBBB artifact. There is no compelling evidence for myocardial ischemia or previous myocardial infarction. 3. Normal left ventricular size and systolic function without any focal wall motion abnormality. 4. No angina with pharmacologic vasodilator stress. The presence of LBBB precludes ST-segment analysis. No arrhythmias were seen. Nica Martins - RS/fn/ND doc#: [id number]/job#: [id number] dd: 03/11/2025 17:08:00 dt: 03/11/2025 18:24:00 DICTATING MD/COPIES TO: Mark Cruz MD; Dr. Kyle Mcintyre COPIES MNE: PARUL; ; Dr. Kyle Mcintyre
== END ==
PROVIDERS: PCP Nurse Practitioner; Referring Provider Internal Medicine Cardiovascular Disease; Visit Provider Internal Medicine Cardiovascular Disease
DX: I44.7 Left bundle-branch block, unspecified (principal); I34.81 Nonrheumatic mitral (valve) annulus calcification; E11.9 Type 2 diabetes mellitus without complications; I10 Essential (primary) hypertension; E78.5 Hyperlipidemia, unspecified; R06.00 Dyspnea, unspecified
CPT/HCPCS: 78452; 93017; 93306; A9502; J2785